=== PATIENT | female | born 2000 | race Caucasian/White ===

== ENCOUNTER 2020-12-08 18:12 | Emergency (ER) | payer OTHER, SELFPAY ==
[2020-12-08 18:25] VITALS: BP 117/78; PULSE 77; RESP 14; TEMP 36.9; O2SAT 99
[2020-12-08 20:26] VITALS: BP 121/79; PULSE 72; RESP 14; TEMP 36.9; O2SAT 98
[2020-12-08 21:05] VITALS: BP 121/77; PULSE 68; RESP 16; O2SAT 99
[2020-12-08] MEDS: diphenhydrAMINE HCl INJ 50 MG/ML VIAL 25 MG IV PUSH (21:07)
[2020-12-08] MEDS: METOCLOPRAMIDE HCL INJ 10 MG/2 ML VIAL IV PUSH (21:09)
[2020-12-08] MEDS: KETOROLAC 30 MG/ML VIAL (*BKC) IV PUSH (21:12)
--- NOTE | 2020-12-08 21:29 | ED.GENADULT ---
HPI - General Adult General Chief complaint: Headache Stated complaint: headache Time Seen by Provider: 12/08/20 21:18 History of Present Illness HPI narrative: Patient is a 20-year-old female presents emerged from with chief complaint of headache. Patient reports that she started having severe headache states it is not the worst headache of her life but it is a bad when compared to her usual ones. Patient reports she had photophobia did not have nausea or vomiting. The patient is feeling much better after receiving medications. The patient denies focal neurological deficit Related Data Home Medications Medication Instructions Recorded Confirmed No Home Medications 12/08/20 12/08/20 Allergies Allergy/AdvReac Type Severity Reaction Status Date / Time No Known Allergies Allergy Unverified 12/08/20 20:32 Review of Systems Review of Systems: A 10 system review of systems was completed on the patient and is negative except for what is stated in the HPI. Nursing and ancillary documentation was reviewed. PMFSH Comments Patient has history of headaches Family history the patient's father has migraines Social history the patient denies illicit drug use Exam Narrative: GENERAL: Well-appearing, well-nourished, and in no acute distress. HEAD: Normocephalic, atraumatic. EYES: PERRLA and EOMI. ENT: Nares clear, no rhinorrhea or epistaxis. Mucous membranes moist. NECK: Supple. CHEST: Clear to auscultation. No respiratory distress. HEART: Regular rate and rhythm. No murmur heard. Normal peripheral pulses. ABDOMEN: Soft, nontender, nondistended, normal active bowel sounds. EXTREMITIES: Normal range of motion. No edema. SKIN: Warm, dry, no rash. NEURO: No focal deficits. Alert and oriented x3. PSYCH: Normal mood and affect. Course Vital Signs Vital signs: Vital Signs Temperature 36.9 C 12/08/20 18:25 Pulse Rate 77 12/08/20 18:25 Respiratory Rate 14 12/08/20 18:25 Blood Pressure 117/78 12/08/20 18:25 Pulse Oximetry 99 12/08/20 18:25 Temperature 36.9 C 12/08/20 20:26 Pulse Rate 68 12/08/20 21:05 Respiratory Rate 16 12/08/20 21:05 Blood Pressure 121/77 12/08/20 21:05 Pulse Oximetry 99 12/08/20 21:05 Medical Decision Making Vital Signs Vital Signs: Vital Signs Temperature 36.9 C 12/08/20 18:25 Pulse Rate 77 12/08/20 18:25 Respiratory Rate 14 12/08/20 18:25 Blood Pressure 117/78 12/08/20 18:25 Pulse Oximetry 99 12/08/20 18:25 Temperature 36.9 C 12/08/20 20:26 Pulse Rate 68 12/08/20 21:05 Respiratory Rate 16 12/08/20 21:05 Blood Pressure 121/77 12/08/20 21:05 Pulse Oximetry 99 12/08/20 21:05 Discharge Plan Discharge Clinical Impression: Headache Qualifiers: Headache type: unspecified Headache chronicity pattern: acute headache Intractability: not intractable Qualified Code(s): R51.9 - Headache, unspecified Patient Disposition: Home, Self-Care Condition: Stable Instructions: Antibiotic Form, Acute Headache (ED) Prescriptions: No Action No Home Medications RF: 0 Follow-up/Referrals: PHYSICIAN,PACKAGING ASSOCIATE [Primary Care Provider] - Eduard Schwartz MD [Physician] - Time of Disposition: 21:32
== END 2020-12-08 21:42 | disposition home or self-care (01) ==
PROVIDERS: Emergency Provider Emergency Medicine
DX: R51.9 Headache, unspecified (principal)
CPT/HCPCS: 96374; 96375; 99284; J1200; J1885; J2765

== ENCOUNTER 2021-05-08 15:58 | Emergency (ER) | payer OTHER, SELFPAY ==
[2021-05-08 16:23] VITALS: BP 123/61; PULSE 85; RESP 18; TEMP 36.3; O2SAT 100
--- NOTE | 2021-05-08 18:09 | ED.GENADULT ---
HPI - General Adult General Chief complaint: Upper Respiratory Infection Stated complaint: headache, wants covid test Time Seen by Provider: 05/08/21 17:15 Source: RN notes reviewed History of Present Illness HPI narrative: Patient presents emergency department from home for COVID-19. Patient states that she was exposed to family with COVID-19 on . She states symptoms began 2 days ago she states intermittent headache as well sore throat and a nonproductive cough. She denies having fevers or chills, chest pain shortness of breath abdominal pain nausea or vomiting. Patient states that she is currently but denies any abdominal pain or vaginal bleeding. States that she is scheduled to be following up with PROFESSOR OF GENETICS for her but has not seen them yet states she was worried about Covid and came to be evaluated Related Data Home Medications Medication Instructions Recorded Confirmed No Home Medications 12/08/20 12/08/20 Allergies Allergy/AdvReac Type Severity Reaction Status Date / Time No Known Allergies Allergy Unverified 12/08/20 20:32 Review of Systems Review of Systems: Gen.: Denies fevers or chills Eyes: Denies eye pain or visual change ENT: See HPI Respiratory: Denies shortness of breath reports cough is nonproductive CV: Denies chest pain or palpitations GI: Denies abdominal pain nausea, emesis or diarrhea reports Musculoskeletal: Denies back pain or muscle pain Neuro: Reports intermittent headache Skin: Denies rash Except as documented, all other systems reviewed and negative [facility] Past Medical History Medical History (Updated 05/08/21 @ 18:36 by Han Medina DO) Patient denies significant medical history Social History Social History (Updated 05/08/21 @ 18:11 by Han Medina DO) Tobacco type: e-cigarettes/vaping Exam Narrative: APPEARANCE: No acute distress, nontoxic, resting in bed EYES: EOMI HEENT: Normocephalic, atraumatic, TMs clear bilaterally nares patent or mucosa moist mild erythema no exudate posterior pharynx tonsils 2+ uvula midline RESPIRATORY: No respiratory distress Clear to auscultation bilaterally with no rhonchi wheezing or rales. CARDIOVASCULAR: Regular rate and rhythm without murmurs rubs or gallops. ABDOMINAL: Soft, nontender, nondistended, no rebound or guarding MUSCULOSKELETAl: Moves all extremities. NEURO: Awake and alert. Following commands, speech normal, no focal deficits SKIN:: Warm, dry. No rashes lesions or abrasions PSYCHIATRIC: Normal affect/mood, Course Course Emergency Course: Discussed with patient results of workup and diagnosis. Discussed need for follow-up with primary care, proper use of medication, and reasons to return to the emergency department. Patient understands and agrees to current treatment plan you need to remain on self-isolation until the results of her COVID-19 test are returned the results will be sent to your primary care physicia Vital Signs Vital signs: Vital Signs Temperature 97.4 F L 05/08/21 16:23 Pulse Rate 85 05/08/21 16:23 Respiratory Rate 18 05/08/21 16:23 Blood Pressure 123/61 05/08/21 16:23 Pulse Oximetry 100 05/08/21 16:23 Temperature 97.4 F L 05/08/21 16:23 Pulse Rate 85 05/08/21 16:23 Respiratory Rate 18 05/08/21 16:23 Blood Pressure 123/61 05/08/21 16:23 Pulse Oximetry 100 05/08/21 16:23 Medical Decision Making Vital Signs Vital Signs: Vital Signs Temperature 97.4 F L 05/08/21 16:23 Pulse Rate 85 05/08/21 16:23 Respiratory Rate 18 05/08/21 16:23 Blood Pressure 123/61 05/08/21 16:23 Pulse Oximetry 100 05/08/21 16:23 Temperature 97.4 F L 05/08/21 16:23 Pulse Rate 85 05/08/21 16:23 Respiratory Rate 18 05/08/21 16:23 Blood Pressure 123/61 05/08/21 16:23 Pulse Oximetry 100 05/08/21 16:23 Lab Data Labs: Lab Results 05/08/21 Range/Units 17:55 SARS-CoV-2 RNA (RT-PCR) Pending Inf
[2021-05-09 16:52] LABS: SARS-CoV-2 RNA PCR Positive
== END 2021-05-08 18:56 | disposition home or self-care (01) ==
PROVIDERS: Emergency Provider Emergency Medicine
DX: U07.1 COVID-19 (principal)
CPT/HCPCS: 87804; 99283; C9803; U0003; U0005

== ENCOUNTER 2024-04-16 09:32 | Emergency (ER) | payer OTHER, SELFPAY ==
--- NOTE | ~2024-04-16 | XR_ITS ---
XR hip RT min 2V Ordering provider: Abhinav Elizondo MD History: . NON TRAUMA PAIN FOR 1 WEEK . Comparison: None. FINDINGS: BONES: No acute fracture or dislocation. HIP JOINT SPACES: Normal. PUBIC SYMPHYSIS: Normal. SOFT TISSUES: Normal. IMPRESSION: No acute osseous abnormality pelvis and right hip. Reviewed, dictated and finalized at location A. [facility] TECHNICIAN
[2024-04-16 09:36] VITALS: BP 117/65; PULSE 76; RESP 18; TEMP 36.6; O2SAT 100
--- NOTE | 2024-04-16 10:15 | ED.GENADULT ---
HPI - General Adult General Chief complaint: Extremity Injury, Lower Stated complaint: right hip pain Time Seen by Provider: 04/16/24 09:42 History of Present Illness HPI narrative: Patient is a 24-year-old female who presents ER with discomfort in the right hip. Lateral aspect. Worse with bending over. No numbness or tingling of the leg. No known trauma. It does seem to get worse when she goes to the gym as well. She has not tried any pain relief medication. Related Data Allergies Allergy/AdvReac Type Severity Reaction Status Date / Time No Known Allergies Allergy Unverified 04/16/24 09:35 Review of Systems Constitutional: Constitutional: Reports no additional constitutional complaints Musculoskeletal: Musculoskeletal: Reports no additional musculoskeletal complaints Integumentary/Breasts: Skin/Breast: Reports system reviewed and no additional complaints, except as docu Neurologic: Reports system reviewed and no additional complaints, except as documented PMFSH Past Medical History Medical History (Updated 04/16/24 @ 10:31 by Abhinav Elizondo MD) Patient denies significant medical history Surgical History Surgical History (Updated 04/16/24 @ 10:25 by Abhinav Elizondo MD) History of section Social History Social History (Updated 05/08/21 @ 18:11 by Han Medina, DO) Tobacco type: e-cigarettes/vaping Exam Narrative: GENERAL: Well-appearing, well-nourished, and in no acute distress. HEAD: Normocephalic, atraumatic. ENT: Mucous membranes moist. CHEST: Clear to auscultation. No respiratory distress. HEART: Regular rate and rhythm. Normal peripheral pulses. Back: No midline or paraspinal muscle tenderness of T/L-spine. EXTREMITIES: Normal range of motion. No edema. SKIN: Warm, dry, no rash. NEURO: Alert and oriented x3. PSYCH: Normal mood and affect. Course Course Emergency Course: The imaging without acute osseous process. Discussed conservative measures with anti-inflammatories scheduled. Patient verbalized understanding. Vital Signs Vital signs: Vital Signs Temperature 97.9 F 04/16/24 09:36 Pulse Rate 76 04/16/24 09:36 Respiratory Rate 18 04/16/24 09:36 Blood Pressure 117/65 04/16/24 09:36 Pulse Oximetry 100 04/16/24 09:36 Temperature 97.9 F 04/16/24 09:36 Pulse Rate 76 04/16/24 09:36 Respiratory Rate 18 04/16/24 09:36 Blood Pressure 117/65 04/16/24 09:36 Pulse Oximetry 100 04/16/24 09:36 Medical Decision Making Vital Signs Vital Signs: Vital Signs Temperature 97.9 F 04/16/24 09:36 Pulse Rate 76 04/16/24 09:36 Respiratory Rate 18 04/16/24 09:36 Blood Pressure 117/65 04/16/24 09:36 Pulse Oximetry 100 04/16/24 09:36 Temperature 97.9 F 04/16/24 09:36 Pulse Rate 76 04/16/24 09:36 Respiratory Rate 18 04/16/24 09:36 Blood Pressure 117/65 04/16/24 09:36 Pulse Oximetry 100 04/16/24 09:36 Imaging Data Radiologist's impression: ITS Impressions Hip X-Ray 04/16/24 10:11 IMPRESSION: No acute osseous abnormality pelvis and right hip. Discharge Plan Discharge Clinical Impression: Hip strain Patient Disposition: Home, Self-Care Condition: Stable Instructions: Antibiotic Form, Hip Pain (ED) Additional Instructions: Return ER if you have chest pain shortness of breath, he cannot keep down food water, you lose consciousness, have additional concerns. Prescriptions: New naproxen 375 mg tablet 375 mg PO BID Qty: 14 0RF Follow-up/Referrals: PHYSICIAN,INSPECTOR [employer] [Primary Care Provider] - Chente Grace MD [Physician] - 1 Week
== END 2024-04-16 11:21 | disposition home or self-care (01) ==
LOC: ANHED 10:47
PROVIDERS: Emergency Provider Emergency Medicine
DX: S76.011A Strain of muscle, fascia and tendon of right hip, initial encounter (principal); F17.290 Nicotine dependence, other tobacco product, uncomplicated; X58.XXXA Exposure to other specified factors, initial encounter
CPT/HCPCS: 73502; 99283